=== PATIENT | female | born 1995 | race Caucasian/White ===

== ENCOUNTER 2017-02-20 11:22 | Emergency (ER) | payer OTHER ==
--- NOTE | 2017-02-20 12:22 | UC ---
Ear Complaint HPI - HPI Summary HPI Summary: 22 yo female with left otatgia x 2 days mild URI ear feels plugged hurts to swallow - History of Current Complaint Chief Complaint: UCEar Stated Complaint: EAR PAIN Time Seen by Provider: 02/20/17 12:09 Hx Obtained From: Patient Hx Last Menstrual Period: 01/14/17 Onset/Duration: Gradual Onset Severity Initially: Mild Severity Currently: Mild Pain Intensity: 4 Pain Scale Used: 0-10 Numeric Aggravating Factors: Other - swallowing/hills Associated Signs/Symptoms: Positive: URI Symptoms - Allergies/Home Medications Allergies/Adverse Reactions: Allergies Allergy/AdvReac Type Severity Reaction Status Date / Time Sulfa Antibiotics Allergy Unknown Verified 02/20/17 12:03 Reaction Details Home Medications: Home Medications Control 1 tab PO DAILY 02/20/17 [History Confirmed 02/20/17] Escitalopram Oxalate [Lexapro 20 mg] 1 tab PO DAILY 02/20/17 [History Confirmed 02/20/17] PMH/Surg Hx/FS Hx/Imm Hx Previously Healthy: Yes - Surgical History Surgical History: None - Family History Known Family History: Positive: Cardiac Disease - Social History Alcohol Use: Weekly Substance Use Type: Marijuana Substance Use Comment - Amount & Last Used: occassionally Smoking Status (MU): Never Smoked Tobacco - Immunization History Most Recent Influenza Vaccination: 12/2016 Review of Systems Constitutional: Negative Skin: Negative Eyes: Negative ENT: Ear Ache, Nasal Discharge Respiratory: Negative Cardiovascular: Negative Gastrointestinal: Negative Genitourinary: Negative Motor: Negative Neurovascular: Negative Musculoskeletal: Negative Neurological: Negative Psychological: Negative Is Patient Immunocompromised?: No All Other Systems Reviewed And Are Negative: Yes Physical Exam Triage Information Reviewed: Yes Appearance: Well-Appearing, No Pain Distress, Well-Nourished Vital Signs: Initial Vital Signs Temp 98.3 F 02/20/17 11:58 Pulse 87 02/20/17 11:58 Resp 16 02/20/17 11:58 BP 98/66 02/20/17 11:58 Pulse Ox 100 02/20/17 11:58 Vital Signs Reviewed: Yes Eyes: Positive: Conjunctiva Clear ENT: Positive: Nasal congestion, TMs normal - R, TM bulging - L, TM red - L, Uvula midline Neck: Positive: Supple, Nontender, No Lymphadenopathy Respiratory: Positive: Lungs clear, Normal breath sounds, No respiratory distress, No accessory muscle use Cardiovascular: Positive: RRR, No Murmur Musculoskeletal: Positive: ROM Intact, No Edema Neurological: Positive: Alert Psychological Exam: Normal Skin Exam: Normal Ear Complaint Course/Dx - Differential Dx/Diagnosis Provider Diagnoses: left otitis media Discharge - Discharge Plan Condition: Stable Disposition: HOME Prescriptions: Amoxicillin PO (*) [Amoxicillin 875 MG (*)] 875 mg PO BID #20 tab Patient Education Materials: Otitis Media (ED) Referrals: No Primary Care Phys,NOPCP [Primary Care Provider] - Additional Instructions: recheck in about 2 weeks if ear not completely back to normal tylenol or advil if needed
== END 2017-02-20 12:21 | disposition home or self-care (01) ==
LOC: UCEAST 11:22
DX: H66.92 Otitis media, unspecified, left ear (principal); Z88.2 Allergy status to sulfonamides
CPT/HCPCS: 99201; G0463

== ENCOUNTER 2019-05-26 11:06 | Emergency (ER) | payer SELFPAY ==
--- NOTE | 2019-05-26 11:59 | UC ---
Complaint Female HPI - HPI Summary HPI Summary: 1 WEEK OF DYSURIA, URGENCY AND DECREASED URINE. NO FEVER, NAUSEA, BACK PAIN. FEELS LIKE HER TYPICAL UTI SYMPTOMS. DENIES ANY CHANCE OF . - History Of Current Complaint Stated Complaint: URINARY ISSUE Time Seen by Provider: 05/26/19 11:29 Hx Obtained From: Patient Hx Last Menstrual Period: 05/07/19 Onset/Duration: Gradual Onset, Lasting Days, Still Present Timing: Constant Severity Initially: Mild Severity Currently: Mild Pain Intensity: 4 Pain Scale Used: 0-10 Numeric Character: Burning Aggravating Factor(s): Urination Alleviating Factor(s): Nothing Associated Signs And Symptoms: Positive: Negative - Allergies/Home Medications Allergies/Adverse Reactions: Allergies Allergy/AdvReac Type Severity Reaction Status Date / Time Sulfa (Sulfonamide Allergy Unknown Verified 05/26/19 11:38 Antibiotics) Reaction Details Home Medications: Home Medications Control 1 tab PO DAILY 02/20/17 [History Confirmed 05/26/19] Escitalopram Oxalate [Lexapro 20 mg] 1 tab PO DAILY 02/20/17 [History Confirmed 05/26/19] Cephalexin CAP* [Keflex 500 CAP*] 500 mg PO BID #10 cap 05/26/19 [Rx] PMH/Surg Hx/FS Hx/Imm Hx Previously Healthy: Yes - Surgical History Surgical History: None - Family History Known Family History: Positive: Cardiac Disease - Social History Alcohol Use: Daily Alcohol Amount: 1 mixed drinks Substance Use Type: None Substance Use Comment - Amount & Last Used: CBD Smoking Status (MU): Never Smoked Tobacco - Immunization History Most Recent Influenza Vaccination: 12/2016 Review of Systems All Other Systems Reviewed And Are Negative: Yes Constitutional: Positive: Negative Respiratory: Positive: Negative Cardiovascular: Positive: Negative Gastrointestinal: Positive: Negative Genitourinary: Positive: Dysuria, Urgency Physical Exam Triage Information Reviewed: Yes Appearance: Well-Appearing, No Pain Distress, Well-Nourished Vital Signs: Initial Vital Signs Temp 98.2 F 05/26/19 11:34 Pulse 85 05/26/19 11:34 Resp 16 05/26/19 11:34 BP 126/81 05/26/19 11:34 Pulse Ox 99 05/26/19 11:34 Laboratory Tests 05/26/19 11:51 POC Urine Color Yellow POC Urine Clarity Cloudy POC Urine pH 8.5 POC Ur Specif [place] 1.020 POC Urine Protein 1+ A POC Ur Glucose (UA) Negative POC Urine Ketones Negative POC Urine Blood Negative POC Urine Nitrite Negative POC Urine Bilirubin Negative POC Urine Urobilinogen 0.2 POC U Leukocyte Esteras 1+ A Vital Signs Reviewed: Yes Eyes: Positive: Conjunctiva Clear ENT: Positive: Hearing grossly normal Neck: Positive: Supple Respiratory: Positive: No respiratory distress, No accessory muscle use Cardiovascular: Positive: Pulses Normal Abdomen Description: Positive: Soft, Other: - MILD SUPRAPUBIC TENDERNESS. Negative: CVA Tenderness (R), CVA Tenderness (L), Distended, Guarding Musculoskeletal: Positive: No Edema Neurological: Positive: Alert Psychological: Positive: Age Appropriate Behavior Skin: Negative: Rashes Complaint Female Dx - Course Course Of Treatment: URINE DIP TODAY SUGGESTIVE OF UTI. WILL COVER WITH KEFLEX TWICE DAILY FOR 5 DAYS. ENCOURAGED HYDRATION. PATIENT STATES NO CHANCE OF AND DECLINES TEST TODAY. SPECIMEN WILL BE SENT FOR CULTURE AND PATIENT WILL BE CONTACTED IF MANAGEMENT NEEDS TO BE CHANGED. - Differential Dx/Diagnosis Provider Diagnosis: UTI (urinary tract infection) Discharge ED - Sign-Out/Discharge Documenting (check all that apply): Patient Departure All imaging exams completed and their final reports reviewed: No Studies - Discharge Plan Condition: Stable Disposition: HOME Prescriptions: Cephalexin CAP* [Keflex 500 CAP*] 500 mg PO BID #10 cap Patient Education Materials: Urinary Tract Infection in Women (ED) Referrals: [facility] [Outside] - If Needed Additional Instructions: URINE TEST SUGGESTIVE OF UTI. TAKE THE ANTIBIOTICS PRESCRIBED. SPECIMEN HAS BEEN SENT FOR CULTURE AND WE WILL CALL YOU IF YOUR MEDICATION NEEDS TO BE CHANGED. STAY WELL HYDRATED. GO TO THE ER WITHOUT FAIL IF YOU DEVELOP FEVER, WORSENING PAIN, NAUSEA/VOMITING OR ANY OTHER CONCERNING SYMPTOMS BE AWARE THAT TAKING THE ANTIBIOTIC AT THE SAME TIME YOUR CONTROL PILL CAN DECREASE THE CONTRACEPTIVE EFFICACY. USE BACKUP METHODS OF CONTROL FOR THE REMAINDER OF THIS CYCLE AND YOUR NEXT CYCLE. - Billing Disposition and Condition Condition: STABLE Disposition: Home
== END 2019-05-26 12:06 | disposition home or self-care (01) ==
LOC: UCEAST 11:06
DX: N39.0 Urinary tract infection, site not specified (principal); Z88.2 Allergy status to sulfonamides
CPT/HCPCS: 81003; 87086; 99212; G0463